=== PATIENT | female | born 1990 | race Caucasian/White ===

== ENCOUNTER 2017-03-18 04:58 | Emergency (ER) | payer OTHER ==
[2017-03-18 05:12] VITALS: BP 147/81; PULSE 82; TEMP 98.2; BMI 41.9
[2017-03-18] MEDS ORDERED: ALBUTEROL SO4 2.5/IPRATROPIUM 0.5 INH SOL 3 ML VIAL.NEB. NEB ONE ×3 (05:43→06:40)
[2017-03-18] MEDS ORDERED: predniSONE 20 MG TABLET (UD) PO ONE (05:43)
--- NOTE | 2017-03-18 05:43 | PDOC ---
History of Present Illness - General Chief Complaint: Asthma Stated Complaint: ASTHMA Time Seen by Provider: 03/18/17 05:14 History Source: Patient Exam Limitations: No Limitations - History of Present Illness Initial Comments: 03/18/17 05:53 Patient is a 27-year-old female past medical history of asthma, presents to emergency department tonight complaining of shortness of breath. Patient states that her asthma has been acting up over the past month. She was seen at urgent care approximately weeks ago and given steroids at a new inhaler which helped her symptoms temporarily. She states that she's been waking up from sleep every night due to coughing and her asthma. She is not taking her primary doctor in over a year. She has never seen a artificial log machine operator for her symptoms. She's never been hospitalized or intubated for her asthma. Denies fevers, recent illness, sore throat, chest pain, palpitations, nausea, vomiting and diarrhea. Vital signs notable for O2 sat of 91%, patient does not appear in acute distress. Past History - Travel Traveled outside of the country in the last 30 days: No Close contact w/someone who was outside of country & ill: No - Past Medical History Allergies/Adverse Reactions: Allergies Allergy/AdvReac Type Severity Reaction Status Date / Time No Known Allergies Allergy Verified 03/18/17 05:12 Home Medications: Ambulatory Orders Azithromycin [Zithromax 250mg Tablets -] 250 mg PO UTDICT #6 tab 03/18/17 Prednisone [Deltasone -] 40 mg PO DAILY #8 tablet 03/18/17 Asthma: Yes COPD: No - Suicide/Smoking/Psychosocial Hx Smoking History: Never smoked Information on smoking cessation initiated: No Hx Alcohol Use: No Drug/Substance Use Hx: No Review of Systems - Review of Systems Able to Perform ROS?: Yes Comments:: 03/18/17 06:08 CONSTITUTIONAL: Absent: fever, chills, diaphoresis, generalized weakness, malaise, loss of appetite HEENT: Absent: rhinorrhea, nasal congestion, throat pain, throat swelling, difficulty swallowing, mouth swelling, ear pain, eye pain, visual Changes CARDIOVASCULAR: Absent: chest pain, loss of consciousness, palpitations, irregular heart rate, peripheral edema RESPIRATORY: Present: cough, wheezing Absent: shortness of breath, dyspnea with exertion, orthopnea, stridor, hemoptysis GASTROINTESTINAL: Absent: abdominal pain, abdominal distension, nausea, vomiting, diarrhea, constipation, melena, hematochezia GENITOURINARY: Absent: dysuria, frequency, urgency, hesitancy, hematuria, flank pain, genital pain MUSCULOSKELETAL: Absent: myalgia, arthralgia, joint swelling SKIN: Absent: rash, itching, pallor HEMATOLOGIC/IMMUNOLOGIC: Absent: easy bleeding, easy bruising, lymphadenopathy, frequent infections ENDOCRINE: Absent: unexplained weight gain, unexplained weight loss, heat intolerance, cold intolerance NEUROLOGIC: Absent: headache, focal weakness or paresthesias, dizziness, unsteady gait, seizure, mental status changes, bladder or bowel incontinence PSYCHIATRIC: Absent: anxiety, depression, suicidal or homicidal ideation, hallucinations. Is the patient limited Slovak proficient: No *Physical Exam - Vital Signs Last Vital Signs Temp Pulse Resp BP Pulse Ox 98.2 F 82 16 147/81 91 L 03/18/17 05:10 03/18/17 05:10 03/18/17 05:10 03/18/17 05:10 03/18/17 05:10 - Physical Exam Comments: 03/18/17 06:08 GENERAL: Well developed, well nourished. Awake and alert. No acute distress. HEENT: Normocephalic, atraumatic. PERRLA, EOMI. No conjunctival pallor. Sclera are non- icteric. Moist mucous membranes. Oropharynx is clear. NECK: Supple. Full ROM. No JVD. Carotid pulses 2+ and symmetric, without bruits. No thyromegaly. No lymphadenopathy. CARDIOVASCULAR: Regular rate and rhythm. No murmurs, rubs, or gallops. Distal pulses are 2+ and symmetric. PULMONARY: No evidence of respiratory distress. Lungs with inspiratory and expiratory wheezing b/l. No rales or rhonchi. ABDOMINAL: Soft. Non-tender. Non-distended. No rebound or guarding. No organomegaly. Normoactive bowel sounds. MUSCULOSKELETAL Normal range of motion at all joints. No bony deformities or tenderness. No CVA tenderness. EXTREMITIES: No cyanosis. No clubbing. No edema. No calf tenderness. SKIN: Warm and dry. Normal capillary refill. No rashes. No jaundice. NEUROLOGICAL: Alert, awake, appropriate. Cranial nerves 2-12 intact. No deficits to light touch and temperature in face, upper extremities and lower extremities. No motor deficits in the in face, upper extremities and lower extremities. Normoreflexic in the upper and lower extremities. Normal speech. Toes are down- going bilaterally. Gait is normal without ataxia. PSYCHIATRIC: Cooperative. Good eye contact. Appropriate mood and affect. Medical Decision Making - Medical Decision Making 03/18/17 06:10 Patient is a 27-year-old female with past medical history of asthma, who presents for a asthma exacerbation today. Denies recent illness, most likely progression of her symptoms. Will treat with a DuoNeb and steroids at this time. Informed the patient she should follow up with her primary care doctor due to her symptoms getting worse as she may need new daily management of her symptoms. Patient is oxygen saturation is currently 91%, however patient is not using accessory muscles to breathe and appears comfortable. Will reevaluate. 03/18/17 07:08 After two duonebs sat now at 100. Will d/c home with steroids and azithromycin. Referral for pulmonary given. *DC/Admit/Observation/Transfer Diagnosis at time of Disposition: Asthma exacerbation Qualifiers: Asthma severity: mild Asthma persistence: intermittent Qualified Code(s): J45.21 - Mild intermittent asthma with (acute) exacerbation - Discharge Dispostion Disposition: HOME Condition at time of disposition: Good Admit: No - Referrals Referrals: Earle Zayas MD, MD [Staff Physician] - - Patient Instructions Printed Discharge Instructions: DI for Asthma -- Adult Additional Instructions: You have an asthma attack today. Please take the steroids as directed for the next 4 days to help with her symptoms. Please continue using her albuterol pump every 4 hours. Please take the Z-El to help with her symptoms as well. Please follow up with pulmonology and your primary care doctor this week. Return to the emergency department if you have worsening symptoms including shortness of breath, difficulty breathing, or any new or worsening symptoms. - Post Discharge Activity Forms/Work/School Notes: Back to Work
[2017-03-18] MEDS ORDERED: predniSONE 20 MG TABLET (UD) ONE (05:49)
== END 2017-03-18 07:38 | disposition home or self-care (01) ==
LOC: JER 04:58
PROC: 3E0F7GC Introduction of Other Therapeutic Substance into Respiratory Tract, Via Natural or Artificial Opening (ICD-10-PCS; principal; 2017-03-18)
PROC: 3E0F7GC Introduction of Other Therapeutic Substance into Respiratory Tract, Via Natural or Artificial Opening (ICD-10-PCS; 2017-03-18)
DX: J45.21 Mild intermittent asthma with (acute) exacerbation (principal)
CPT/HCPCS: 99281-25

== ENCOUNTER 2020-04-25 20:37 | Emergency (ER) | payer BC, OTHER ==
[2020-04-25 20:48] VITALS: BP 124/71; PULSE 76; TEMP 98.5; BMI 36.3
[2020-04-25 22:43] LABS: EPI CELLS 32 /uL (0-25.1); HYALINE CASTS 3 /uL (0-3.1); PH,URINE 5.5 (5.0-8.0); URINE APPEARANCE CLEAR; URINE BACTERIA 458 /uL (0-1359); URINE BILIRUBIN 1+ (NEGATIVE); URINE COLOR DK YELLOW; URINE GLUCOSE (UA) NEGATIVE (NEGATIVE); URINE KETONE TRACE (NEGATIVE); URINE LEUK ESTERASE TRACE (NEGATIVE); URINE NITRITE NEGATIVE (NEGATIVE); URINE PROTEIN TRACE (NEGATIVE); URINE RBC 118 /uL (0-23.9); URINE UROBILINOGEN 0.2 mg/dL (0.2-1.0); URINE WBC 78 /uL (0-25.8)
[2020-04-25] MEDS ORDERED: CEPHALEXIN MONOHYDRATE 500 MG CAPSULE (UD) PO ONE (22:59)
[2020-04-25] MEDS ORDERED: CEPHALEXIN MONOHYDRATE 500 MG CAPSULE (UD) ONE (23:05)
== END 2020-04-25 23:09 | disposition home or self-care (01) ==
LOC: JER 20:37
DX: O23.41 Unspecified infection of urinary tract in pregnancy, first trimester (principal); R51.9 Headache, unspecified; Z3A.08 8 weeks gestation of pregnancy
CPT/HCPCS: 81003; 87086; 99283-25; C9803; U0003

== ENCOUNTER 2023-04-17 13:06 | Emergency (ER) | payer BC ==
[2023-04-17 13:29] VITALS: BP 119/84; PULSE 85; RESP 17; TEMP 98.6; BMI 37.1
[2023-04-17] MEDS ORDERED: ALBUTEROL SO4 0.083% IH SOL 2.5 MG/3 ML VIAL.NEB. NEB ONE (14:54)
[2023-04-17] MEDS ORDERED: LORATADINE 10 MG TABLET ONE (14:54)
[2023-04-17] MEDS: ALBUTEROL SO4 0.083% IH SOL 2.5 MG/3 ML VIAL.NEB. NEB ONE (14:57)
[2023-04-17] MEDS: LORATADINE 10 MG TABLET PO ONE (14:57)
== END 2023-04-17 17:20 | disposition home or self-care (01) ==
LOC: JERFT 13:06
PROC: 3E0F7GC Introduction of Other Therapeutic Substance into Respiratory Tract, Via Natural or Artificial Opening (ICD-10-PCS; principal; 2023-04-17)
DX: R06.02 Shortness of breath (principal); R05.9 Cough, unspecified; J45.21 Mild intermittent asthma with (acute) exacerbation
CPT/HCPCS: 71046-TC-FY; 99283-25

== ENCOUNTER 2023-09-17 12:44 | Emergency (ER) | payer BC ==
[2023-09-17 12:52] VITALS: BP 106/67; PULSE 74; RESP 18; TEMP 98.5; BMI 34.5
[2023-09-17] MEDS ORDERED: ALBUTEROL SO4 2.5/IPRATROPIUM 0.5 INH SOL 3 ML VIAL.NEB. NEB ONE ×2 (14:12→14:23)
[2023-09-17] MEDS: ALBUTEROL SO4 2.5/IPRATROPIUM 0.5 INH SOL 3 ML VIAL.NEB. NEB ONE ×2 (14:16→14:26)
[2023-09-17] MEDS ORDERED: predniSONE 20 MG TABLET (UD) ONE (14:23)
[2023-09-17] MEDS: predniSONE 20 MG TABLET (UD) PO ONE (14:26)
== END 2023-09-17 16:16 | disposition home or self-care (01) ==
LOC: JER 12:44
PROC: 3E0F7GC Introduction of Other Therapeutic Substance into Respiratory Tract, Via Natural or Artificial Opening (ICD-10-PCS; principal; 2023-09-17)
DX: J45.901 Unspecified asthma with (acute) exacerbation (principal)
CPT/HCPCS: 93005; 93010; 99284-25

== ENCOUNTER 2024-02-15 04:05 | Emergency (ER) | payer BC ==
[2024-02-15 04:19] VITALS: BP 126/88; PULSE 73; RESP 16; TEMP 98.4; BMI 34.7
[2024-02-15] MEDS ORDERED: ACETAMINOPHEN 325 MG TABLET (FP) ONE (04:58)
[2024-02-15] MEDS: ACETAMINOPHEN 500 MG TABLET (FP) PO ONE (05:04)
== END 2024-02-15 06:44 | disposition home or self-care (01) ==
LOC: JER 04:05
DX: S99.911A Unspecified injury of right ankle, initial encounter (principal); X50.1XXA Overexertion from prolonged static or awkward postures, initial encounter
CPT/HCPCS: 73610-TC-RT-FY; 73630-TC-RT-FY; 99283-25